=== PATIENT | female | born 1970 | race Caucasian/White ===

== ENCOUNTER 2024-08-06 08:03 | Outpatient (OUT) | payer BC, SELFPAY ==
--- NOTE | 2024-08-06 08:12 | ECG_ITS ---
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
--- NOTE | 2024-08-06 08:12 | XR_ITS ---
The [address] [address] Patient Name: JESSICA JENKINS MRN: [id number] date: 1970 Sex: F [facility]: [facility] Accession/Order Number: [id number] Exam Date: 08/06/2024 08:55 Report Date: 08/06/2024 10:13 At the request of: GURINDER MILLER Procedure: XR chest 2V PROCEDURE: XR chest 2V DATE: 08/06/2024 8:55 AM EST COMPARISONS: None. CLINICAL INDICATION: 54 years Female Preop exam FINDINGS: The cardiomediastinal silhouette and pulmonary vasculature are within normal limits. The lungs are clear. There is no evidence of pleural effusion or pneumothorax. XR/XR chest 2V IMPRESSION: Chest radiograph is within normal limits. Electronically authenticated by: MAYELIN SALDANA Date: 08/06/2024 10:13
== END 2024-08-06 08:04 | disposition home or self-care (01) ==
PROVIDERS: PCP Internal Medicine; Visit Provider Obstetrics & Gynecology
DX: Z01.810 Encounter for preprocedural cardiovascular examination (principal); N95.0 Postmenopausal bleeding
CPT/HCPCS: 71046; 93005

== ENCOUNTER 2024-08-13 06:11 | Day surgery (SDC) | payer BC, SELFPAY ==
[2024-08-06 08:46] VITALS: BP 139/90; PULSE 69; TEMP 36.3; O2SAT 99; BMI 21.9
[2024-08-13] VITALS (8 sets, daily range): BP systolic 111–140; BP diastolic 76–95; PULSE 62–78; TEMP 36.3–36.4; O2SAT 95–99; BMI 21.7
--- OUTSIDE RECORDS SUMMARY | 2024-08-13 06:14 | XMS_ITS | CCD ---
Author Organization [facility] CliniSyut Care Team Providers Care Prior Authorization Nurse Name Role Phone Schroeder, Yanira R Unavailable Unavailable Schroeder, Yanira R Unavailable Unavailable Schroeder, Yanira R Unavailable Unavailable Yuhas Timo ZAVALETA Primary Care Provider [phone] EVANGELINA ESTRADA Referring Unavailable YUHAS, TIMO Duong Primary Care Unavailable YUTIMO TINOCO Referring Unavailable YUHAPaco, TIMO Duong Primary Care Unavailable EVANGELINA ESTRADA Attending Unavailable TIMO FLORES Referring Unavailable YUHASTIMO Primary Care Unavailable YUTIMO TINOCO Attending Unavailable YUHATIMO Antonio Referring Unavailable YUHAS, TIMO Duong Primary Care Unavailable YUHASTIMO Attending Unavailable YUHATIMO Antonio Referring Unavailable YUHASTIMO Primary Care Unavailable EVANGELINA ESTRADA Referring Unavailable YUHASTIMO Primary Care Unavailable YUHASTIMO Referring Unavailable YUHASTIMO Primary Care Unavailable YUHATIMO Antonio Referring Unavailable YUHASTIMO Primary Care Unavailable YUHATIMO Antonio Admitting Unavailable YUHATIMO Antonio Attending Unavailable YUHATIMO Antonio Referring Unavailable YUHASTIMO Primary Care Unavailable YUHATIMO Antonio Attending Unavailable YUHASTIMO Referring Unavailable YUHAS, TIMO Duong Primary Care Unavailable Yuhas Timo KAMARA Primary Care Provider TERRA HENSON Attending Unavailable TIMO FLORES Referring Unavailable SIXTO TERRA C Referring Unavailable WINDNAVIOLET, TERRA C Attending Unavailable BIN JUSTIN Attending Unavailable SIXTO, TERRA C Attending Unavailable LENNOX BRUNO Attending Unavailable LENNOX BRUNO Referring Unavailable BIN JUSTIN Attending Unavailable SVETLANANAVIOLET, TERRA C Referring Unavailable WINDNAVIOLET, TERRA C Attending Unavailable LENNOX BRUNO Referring Unavailable GURINDER HECK Attending Unavailable LENNOX BRUNO Referring Unavailable GURINDER HECK Attending Unavailable Medications Current Medications Medication Drug Class(es) Dates Sig (Normalized) Sig (Original) cloNIDine hydrochloride 0.1 mg oral tablet (5 sources) Central alpha-2 Adrenergic Agonist Start: 07-31-2023 take 1 tablet by mouth once daily cloNIDine (CATAPRES) 0.1 mg tablet Take 1 tablet (0.1 mg total) by mouth nightly. 90 tablet 1 07/31/2023 Active ethinyl estradiol 0.0025 mg / norethindrone acetate 0.5 mg oral tablet (7 sources) Estrogen Start: 04-29-2024 End: 04-29-2025 norethindrone-eth inyl estradiol (Femhrt) 0.5-2.5 MG-MCG tablet Indications: Hot flash, menopausal , Moodiness , Sleep disturbance Take 1 tablet by mouth Daily 30 tablet 2 04/29/2024 04/29/2025 Active FLUoxetine 40 mg oral capsule (13 sources) Serotonin Reuptake Inhibitor Start: 12-31-2023 End: 06-12-2024 take 1 capsule by mouth once daily in the morning FLUoxetine (PROzac) 40 mg capsule Indications: Anxiety take 1 capsule by mouth every morning 90 capsule 1 06/12/2024 Active Start: 07-11-2023 take 1 capsule by mo uth once daily FLUoxetine (PROzac) 20 mg capsule take 1 capsule by mouth once daily 90 capsule 1 07/11/2023 Active fluticasone propionate 0.05 mg/actuat metered dose nasal spray (2 sources) Corticosteroid Start: 11-07-2023 take 2 spray(s) nasal route in the morning fluticasone propionate (FLONASE) 50 mcg/actuation nasal spray Administer 2 sprays into each nostril in the morning. 16 mL 2 11/07/2023 Active fluticasone / salmeterol (5 sources) Corticosteroid, beta2-Adrenergic Agonist Start: 05-29-2024 take 1 puff(s) by inhalation in the morning fluticasone propion-salmeteroL (ADVAIR DISKUS) 250-50 mcg/dose DISKUS Indications: Mild intermittent asthma without complication Inhale 1 puff in the morning and 1 puff before bedtime. 180 each 1 05/29/2024 Active Start: 05-15-2023 take 1 puff(s) by in halation in the morning fluticasone propion-salmeteroL (ADVAIR) 250-50 mcg/dose DISKUS Indications: Mild persistent asthma without complication Inhale 1 puff in the morning and 1 puff before bedtime. 180 each 1 05/15/2023 Active HAIR, SKIN AND NAILS, BIOTIN , ORAL (5 sources) HAIR, SKIN AND N AILS, BIOTIN, ORAL Take by mouth. Active HAIR, SKIN AND N AILS, BIOTIN, ORAL Take by mouth. 0 Active levothyroxine sodium 0.075 mg oral tablet (14 sources) l-Thyroxine Start: 06-24-2024 take 1 tablet by mouth once daily in the morning levothyroxine (SYNTHROID, LEVOTHROID) 75 MCG tablet Indications: Acquired hypothyroidism take 1 tablet by mouth every morning 90 tablet 1 06/24/2024 Active Start: 12-31-2023 End: 06-24-2024 take 1 tablet by mouth in the morning levothyroxine (SYNTHROID, LEVOTHROID) 75 MCG tablet Indications: Acquired hypothyroidism Take 1 tablet (75 mcg total) by mouth in the morning. 90 tablet 1 12/31/2023 06/24/2024 Discontinued Start: 03-23-2023 End: 10-23-2023 take 1 tablet by mouth in the morning levothyroxine (SYNTHROID, LEVOTHROID) 75 MCG tablet Take 1 tablet (75 mcg total) by mouth in the morning. 90 tablet 0 10/24/2023 Active montelukast 10 mg oral tablet (2 sources) Leukotriene Receptor Antagonist Start: 11-07-2023 take 1 tablet by mouth in the morning montelukast (SINGULAIR) 10 mg tablet Take 1 tablet (10 mg total) by mouth in the morning. 30 tablet 5 11/07/2023 Active rosuvastatin calcium 10 mg oral tablet (10 sources) HMG-CoA Reductase Inhibitor Start: 11-11-2023 take 1 tablet by mouth at bedtime rosuvastatin (Crestor) 10 MG tablet Take 10 mg by mouth at bedtime 11/11/2023 Active Completed/Discontinued Medications Medication Drug Class(es) Dates Sig (Normalized) Sig (Original) tiZANidine 4 mg oral tablet (5 sources) Central alpha-2 Adrenergic Agonist Start: 04-27-2024 End: 07-13-2024 tiZANidine (Zanaflex) 4 MG tablet Indications: Cervicogenic headache 1/2-1 tablet at bed 30 tablet 2 04/27/2024 07/13/2024 Discontinued Problems Active Problems Problem Classification Problem Date Documented Da te Episodic/Chronic Acute cerebrovascular disease (7 sources) Cerebral embolism; Translations: [Occlusion and stenosis of unspecified cerebral artery] Onset: 02-01-2024 02-01-2024 Chronic Anxiety disorders (9 sources) Anxiety; Translations: [Anxiety disorder, unspecified] Onset: 07-20-2022 07-20-2022 Chronic Asthma (4 sources) Mild intermittent asthma; Translations: [Mild intermittent asthma, uncomplicated] Onset: 11-07-2023 11-07-2023 Chronic Disorders of lipid metabolism (3 sources) Mixed hyperlipidemia; Translations: [Mixed hyperlipidemia] Onset: 11-11-2023 11-11-2023 Chronic Diverticulosis and diverticulitis (2 sources) Diverticulosis of large intestine; Translations: [Diverticulosis of large intestine without perforation or abscess without bleeding] Onset: 01-31-2024 01-31-2024 Chronic Headache; including migraine (19 sources) Migraine with aura; Translations: [Migraine with aura, not intractable, without status migrainosus] Onset: 12-18-2017 07-20-2022 Chronic Headache; including migraine (5 sources) Cervicogenic headache; Translations: [Cervicogenic headache] Onset: 05-28-2024 05-28-2024 Episodic Menopausal disorders (6 sources) Postmenopausal bleeding; Translations: [Postmenopausal bleeding] Onset: 07-13-2024 06-09-2024 Chronic Nervous system congenital anomalies (7 sources) Spina bifida with hydrocephalus; Translations: [Unspecified spina bifida with hydrocephalus] Onset: 08-19-2012 02-01-2024 Chronic Nutritional deficiencies (1 source) Deficiency of other specified B group vitamins; Translations: [Deficiency of other specified B group vitamins] Onset: 12-24-2023 Episodic Other and unspecified benign neoplasm (5 sources) Leiomyoma; Translations: [Benign neoplasm of connective and other soft tissue, unspecified] Onset: 07-13-2024 06-09-2024 Episodic Other nervous system disorders (1 source) Polyneuropathy, unspecified; Translations: [Polyneuropathy, unspecified] Onset: 12-24-2023 Chronic Other nervous system disorders (2 sources) Paresthesia of skin; Translations: [Paresthesia of skin] Onset: 12-24-2023 Episodic Other nervous system disorders (5 sources) Sensory disorder; Translations: [Unspecified disturbances of skin sensation] Onset: 05-28-2024 05-28-2024 Episodic Other upper respiratory disease (1 source) Other seasonal allergic rhinitis; Translations: [Other seasonal allergic rhinitis] Onset: 12-24-2023 Chronic Other upper respiratory infections (3 sources) Chronic frontal sinusitis; Translations: [Chronic frontal sinusitis] Onset: 11-07-2023 11-07-2023 Chronic Spondylosis; intervertebral disc disorders; other back problems (10 sources) Disorder of joint of spine; Translations: [Other spondylosis with radiculopathy, lumbar region] Onset: 05-28-2024 05-28-2024 Chronic Spondylosis; intervertebral disc disorders; other back problems (1 source) Cervical radiculopathy; Translations: [Radiculopathy, cervical region] 05-20-2024 Episodic Thyroid disorders (14 sources) Hypothyroidism; Translations: [Hypothyroidism, unspecified] Onset: 11-03-2019 07-20-2022 Chronic Unclassified (1 source) numbness ,face,tongue, fingers and toes Onset: 12-24-2023 Unclassified (1 source) Annual Exam Onset: 11-07-2023 Unclassified (1 source) Screening Onset: 01-31-2024 Past or Other Problems Problem Classification Problem Date Documented Da te Episodic/Chronic Conditions associated with dizziness or vertigo (5 sources) Dizziness; Translations: [Dizziness and giddiness] Onset: 07-20-2022 07-20-2022 Episodic Malaise and fatigue (5 sources) Fatigue; Translations: [Other fatigue] Onset: 07-20-2022 07-20-2022 Episodic Mood disorders (5 sources) Mood disorders Onset: 03-07-2023 Resolved: 12-31-2023 03-07-2023 Other connective tissue disease (7 sources) Aura; Translations: [Other symptoms and signs involving the nervous system] Onset: 12-18-2017 02-01-2024 Episodic Other nervous system disorders (5 sources) Abnormal sensation; Translations: [Other disturbances of skin sensation] Onset: 07-20-2022 07-20-2022 Episodic Other screening for suspected conditions (not mental disorders or infectious disease) (5 sources) Patient encounter status; Translations: [Encounter for screening for malignant neoplasm of colon] Onset: 11-07-2023 11-07-2023 Episodic Screening and history of mental health and substance abuse codes (1 source) Personal history of nicotine dependence; Translations: [Personal history of nicotine dependence] Onset: 08-21-2023 Episodic Results Test Name Value Interpretation Reference Range Facility US PELVIS TRANSVAGINALon US PELVIS TRANSVAGINAL EXAM: Pelvic Ultrasound, Transvaginal. REASON FOR EXAM: Post menopausal bleeding. COMPARISON: None TECHNIQUE: Longitudinal and transverse grayscale, color Doppler, spectral wave analysis of the pelvis obtained endovaginally. FINDINGS: The uterus is of normal size and position. Isoechoic mass in the right side of the uterine body measuring 1.9 x 1.46 x 1.22 cm with slight posterior acoustic enhancement. Neither ovary is visualized sonographically. Bowel gas hinders evaluation. The endometrium measures less than 3 mm. Measurements: Uterus: 8.95 x 4.82 x 3.60 cm EM: 0.26 cm Right Ovary: Not visualized Left Ovary: Not visualized IMPRESSION: 1. Hypoechoic solid lesion in the right myometrium near the fundus consistent with an intrauterine fibroid. 2. Limited study due to bowel gas. 3. The endometrium is thin. Correlate for endometrial atrophy given postmenopausal status. *This report is generated using voice recognition reporting (Aerospike). On occasion [employer] erroneously drops words from the report or replaces the spoken word with similar sounding words. Please call with any questions/concerns regarding this report.* Dictated and transcribed 06/03/24/dploulou This report has been electronically signed and approved by the interpreting radiologist. Electronically Signed Yasmani Catalan II, M.D. 2024-06-03 17:22:29 Normal Not Available EMG 2 Extremitieson 05-20-20 24 [facility] NVC 11-12 Nerveson 4 [facility] MR CERVICAL SPINE WO CONTRAS Ton 05-19-2024 MR CERVICAL SPINE WO CONTRAST Exam: MR - MRI CERVICAL SPINE WO Clinical History: Left sided neck pain, numbness/tingling in fingers and toes for a few months, no injury Reference Exam: No comparison FINDINGS: Imaging technique: Multiplanar MRI evaluation of the cervical spine is submitted, having been acquired in the dedicated cervical spine coil, without IV contrast, performed on 1.5 Marifer MRI system. Imaging findings: Negative for cerebellar tonsillar ectopia. Fourth ventricular size, position, and configuration normal. The cerebellar folia are preserved. There is appropriate vascular flow void in the arteries at the base the brain. Cervical spinal cord signal intensity and morphology normal. Cervical vertebral elemental height, contour, and alignment is anatomic. The disc spaces are well-maintained. Disc space analysis: C2-C3: No disc pathology. The neuroforamina are patent. C3-C4: Minimal central bulge of disc material. The neuroforamina are patent. C4-C5: No disc pathology. The neuroforamina are patent. C5-C6: No disc pathology. The neuroforamina are patent. C6-C7: Mild central bulge of disc material slightly narrowing the ventral epidural space. Early bilateral lateral recess narrowing due to bulging of disc material and subtle uncovertebral joint hypertrophic arthropathic changes more on the right. C7-T1: No disc pathology. The neuroforamina are patent. Paraspinal soft tissues: Negative. Impression: 1. Minor multilevel bulging of disc material most pronounced at C6-C7, with minor associated lateral recess narrowing more on the right. 2. Negative for overt disc extrusion, compression or other fracture, or subluxation. Dictated on: 05/19/2024 3:48 PM This report has been electronically signed and approved by the interpreting Radiologist. Electronically Signed Vince Marion M.D. 2024-05-19 16:01:57 Normal Not Available MR LUMBAR SPINE WO CONTRASTo n 05-19-2024 MR LUMBAR SPINE WO CONTRAST Exam: MR - MRI LUMBAR SPINE WO CONTRAST Clinical History: Low back pain radiates down left leg, numbness/tingling in fingers and toes for a couple of months, no injury Reference Exam: No comparison Technique: Multiplanar MRI evaluation is provided, having been acquired without IV contrast, performed in the dedicated spine coil on 1.5 Marifer MRI system. Findings: Normal conus medullaris terminating at T12-L1. Sagittal STIR imaging: No abnormal STIR weighted signal is identified. Gentle levorotoscoliosis of the lumbar spine. L1-2: Normal hydration and morphology of the intervertebral disc with no endplate spondylosis or facet arthrosis. Normal central canal, lateral recesses and intervertebral neural foramina with no neurologic impingement. L2-3: Normal hydration and morphology of the intervertebral disc with no endplate spondylosis or facet arthrosis. Normal central canal, lateral recesses and intervertebral neural foramina with no neurologic impingement. L3-4: Normal hydration and morphology of the intervertebral disc with no endplate spondylosis or facet arthrosis. Normal central canal, lateral recesses and intervertebral neural foramina with no neurologic impingement. L4-5: Normal hydration and morphology of the intervertebral disc with no endplate spondylosis or facet arthrosis. Normal central canal, lateral recesses and intervertebral neural foramina with no neurologic impingement. L5-S1: Degenerative disc space height loss. Central/left paracentral disc extrusion engaging and displacing the intrathecal left S1 nerve root. The right S1 nerve root is unaffected. The L5 nerve roots course through patent neuroforamina. Minor-mild posterior elemental hypertrophic arthropathic/ligamentous changes. Anterior spondylosis. No significant canal diameter sequela. There is no spondylolisthesis or spondylolysis. There are no infiltrative or destructive processes. There are no paraspinous abnormalities. Impression: 1. Central/left paracentral disc extrusion L5-S1 engaging the intrathecal left S1 nerve root. 2. Degenerative disc base height loss L5-S1. 3. Negative for acute compression or other fracture. No subluxation. Dictated on: 05/19/2024 4:23 PM This report has been electronically signed and approved by the interpreting Radiologist. Electronically Signed Vince Marion M.D. 2024-05-19 16:25:26 Normal Not Available BI MAMMOGRAM DIAGNOSTIC TERRA SYNTHESIS BILATERALon 04-29-2024 BI MAMMOGRAM DIAGNOSTIC TOMOSYNTHESIS BILATERAL This is a summary report. The complete report is available in the patient's medical record. If you cannot access the medical record, please contact the sending organization for a detailed fax or copy. EXAMINATION: BI MAMMOGRAM DIAGNOSTIC TOMOSYNTHESIS BILATERAL CLINICAL HISTORY:left breast lump COMPARISON: March 01, 2023. RESULT: Density: There are scattered areas of fibroglandular density Overall appearance is stable. There is no suspicious mass, asymmetry, architectural distortion, or calcification IMPRESSION: BIRADS 3 - Probably Benign. Please see ultrasound report. Follow-up: Routine Screening Mamm, Short Interval Follow-up Recommend follow-up mammography and ultrasonography in 4 months Board Certified Radiologists. Accredited by the ACR and FDA. MAMMOGRAPHY IS VERY IMPORTANT TO YOUR HEALTH. THE [employer] GUIDELINES RECOMMEND THAT WOMEN 40 YEARS OF AGE AND OLDER SHOULD HAVE A MAMMOGRAM EVERY YEAR. A REMINDER LETTER WILL BE SENT AT THE APPROPRIATE TIME. THIS FACILITY UTILIZES A REMINDER SYSTEM TO ENSURE ALL PATIENTS RECEIVE REMINDER NOTIFICATIONS AT THE APPROPRIATE TIME BASED ON THE RECOMMENDATIONS OF THIS EXAM. THIS INCLUDES REMINDERS FOR ROUTINE SCREENING MAMMOGRAMS, DIAGNOSTIC MAMMOGRAMS IN WHICH THE PATIENT IS ASKED TO RETURN FOR ADDITIONAL VIEWS, OR OTHER BREAST IMAGING INTERVENTIONS WHEN APPROPRIATE. THE PATIENT WILL BE PLACED IN THE APPROPRIATE REMINDER SYSTEM INCLUDING A REMINDER AT THE APPROPRIATE TIME FOR ANY PENDING ADDITIONAL VIEWS. TRANSCRIBED BY: ELECTRONICALLY SIGNED BY: Abbe Elder MD Normal Not Available BI US BREAST LIMITED LEFTon 04-29-2024 BI US BREAST LIMITED LEFT This is a summary report. The complete report is available in the patient's medical record. If you cannot access the medical record, please contact the sending organization for a detailed fax or copy. FINDINGS: Sonographic evaluation of the left breast was performed, correlation made with the same day mammogram and prior mammogram March 01, 2023. Left axillary structure is measured, 4.4 cm maximum diameter, not classic for an aggressive or suspicious breast mass, possible fatty replaced lymph node. IMPRESSION: BIRADS 3 - Probably benign. Recommend follow-up mammography and ultrasonography in 4 months TRANSCRIBED BY: ELECTRONICALLY SIGNED BY: Abbe Elder MD Normal Not Available MR BRAIN W AND WO CONTRAST ( ROUTINE)on 02-13-2024 MR BRAIN W AND WO CONTRAST (ROUTINE) EXAMINATION: MR BRAIN W AND WO CONTRAST (ROUTINE) HISTORY: generalized paresthesias, demyelination TECHNIQUE: Routine brain MRI protocol without and with contrast including diffusion images. CONTRAST: 13 mL intravenous ProHance COMPARISON: None. RESULT: Acute Change: There is no evidence of restricted diffusion to suggest an acute infarct. Hemorrhage: No evidence of prior parenchymal hemorrhage. Mass Lesion/ Mass Effect: No evidence of an intracranial mass or extra-axial fluid collection. No abnormal parenchymal or leptomeningeal enhancement following contrast administration. No significant mass effect. Chronic Change: Few punctate foci of increased T2 and FLAIR signal are noted in the supratentorial white matter which is a nonspecific finding, but likely represents minimal chronic microvascular ischemia or may be within normal limits for age. Parenchyma: No significant volume loss for age. Ventricles: Normal caliber and morphology. Skull Base: Hypothalamic and pituitary region are grossly normal. Craniocervical junction is normal. No significant marrow replacement process. Vasculature: Major intracranial arterial structures, and dural venous sinuses show typical flow void, suggesting patency. Other: The visualized paranasal are clear. Mastoid air cells are clear. The orbits are unremarkable. The extracranial soft tissues are unremarkable. IMPRESSION: No acute intracranial process or suspicious enhancement. ELECTRONICALLY SIGNED BY: Harjeet Rubio MD Normal Not Available BASIC METABOLIC PANLon 12-23 Anion gap [Moles/Vol] 14 mmol/L Normal 5-15 [facility] Comment on above: Performed By: #### PRECIOUS BELTRAN #### [facility] ([id number]) [address], [address] [place] [address] Calcium [Mass/Vol] 10.1 mg/dL Normal 8.5-10.5 [facility] Comment on above: Performed By: #### North FISHER BMP #### [facility] ([id number]) [address], [address] [place] [address] Chloride [Moles/Vol] 101 mmol/L Normal 98-109 [facility] Comment on above: Performed By: #### North FISHER BMP #### [facility] ([id number]) [address], [address] [place] [address] CO2 [Moles/Vol] 25 mmol/L Normal 22-32 [facility] Comment on above: Performed By: #### North FISHER BMP #### [facility] ([id number]) [address], [address] [place] [address] Creatinine [Mass/Vol] 0.78 mg/dL Normal 0.40-1.00 [facility] Comment on above: Result Comment: METH OD TRACEABLE TO IDMS STANDARD Performed By: #### T NATALIA BMP #### [facility] ([id number]) [address], [address] [place] [address] eGFR (CKD-EPI) NON-RACE DEPENDENT >90 Normal >59 [facility] Comment on above: Result Comment: Reported eGFR is based on the CKD-EPI 2020 equation that does not use a race coefficient. Performed By: #### T NATALIA BMP #### [facility] ([id number]) [address], [address] [place] [address] Glucose [Mass/Vol] 94 mg/dL Normal 65-99 [facility] Comment on above: Performed By: #### T NATALIA BMP #### [facility] ([id number]) [address], [facility] [address] [place] [address] Potassium [Moles/Vol] 4.2 mmol/L Normal 3.5-5.0 [facility] Comment on above: Performed By: #### T NATALIA BMP #### [facility] ([id number]) [address], [address] [place] [address] Sodium [Moles/Vol] 140 mmol/L Normal 134-146 [facility] Comment on above: Performed By: #### T NATALIA BMP #### [facility] ([id number]) [address] [address] Urea nitrogen [Mass/Vol] 16 mg/dL Normal 5-23 [facility] Comment on above: Performed By: #### T HYChristi BMP #### [facility] ([id number]) [address] [address] CBC AND AUTO DIFFon 12-24-19 24 ABSOLUTE BASOPHIL 0.0 X10E9/L Normal 0.0-0.2 [facility] Comment on above: Performed By: #### C BCA, [id number] #### [facility] ([id number]) [address], [address] [place] [address] ABSOLUTE NEUTROPHIL 3.7 X10E9/L Normal 1.5-6.6 [facility] Comment on above: Performed By: #### Martine GAMEZ, [id number] #### [facility] ([id number]) [address], [address] [place] [address] Basophils/100 WBC (Bld) 0.7 % Normal [facility] Comment on above: Performed By: #### Martine GAMEZ, [id number] #### [facility] ([id number]) [address], [address] [place] [address] Eosinophils (Bld) [#/Vol] 0.1 10*3/uL Normal 0.0-0.4 [facility] Comment on above: Performed By: #### Martine GAMEZ, [id number] #### [facility] ([id number]) [address], [address] [place] [address] Eosinophils/100 WBC (Bld) 0.9 % Normal [facility] Comment on above: Performed By: #### Martine GAMEZ, [id number] #### [facility] ([id number]) [address], [address] [place] [address] Erythrocyte distribution width (RBC) [Ratio] 12.8 % Normal 11.5-15.0 [facility] Comment on above: Performed By: #### Martine GAMEZ, 18843-4 #### [facility] ([id number]) [address], [address] [place] [address] Hematocrit (Bld) [Volume fraction] 43.9 % Normal 35-47 [facility] Comment on above: Performed By: #### Martine GAMEZ, 91182-5 #### [facility] ([id number]) [address], [address] [place] [address] Hemoglobin (Bld) [Mass/Vol] 14.6 g/dL Normal 11.7-15.5 [facility] Comment on above: Performed By: #### Martine GAMEZ, 32621-2 #### [facility] ([id number]) [address], [address] [place] [address] Lymphocytes (Bld) [#/Vol] 1.2 10*3/uL Normal 1.0-3.5 [facility] Comment on above: Performed By: #### Martine GAMEZ, 77163-4 #### [facility] ([id number]) [address], [facility] [address] [place] [address] Lymphocytes/100 WBC (Bld) 21.6 % Normal [facility] Comment on above: Performed By: #### Martine GAMEZ, 95692-8 #### [facility] ([id number]) [address], [address] [place] [address] MCH (RBC) [Entitic mass] 31.9 pg Normal 27-34 [facility] Comment on above: Performed By: #### Martine GAMEZ, 66529-0 #### [facility] ([id number]) [address], [address] [place] [address] MCHC (RBC) [Mass/Vol] 33.2 g/dL Normal 32-36 [facility] Comment on above: Performed By: #### Martine GAMEZ, 12895-7 #### [facility] ([id number]) [address], [address] [place] [address] MCV (RBC) [Entitic vol] 96 fL Normal 80-100 [facility] Comment on above: Performed By: #### Martine GAMEZ, 12160-7 #### [facility] ([id number]) [address], [address] [place] [address] Monocytes (Bld) [#/Vol] 0.4 10*3/uL Normal 0-0.9 [facility] Comment on above: Performed By: #### Martine GAMEZ, 54477-4 #### [facility] ([id number]) [address], [address] [place] [address] Monocytes/100 WBC (Bld) 8.4 % Normal [facility] Comment on above: Performed By: #### Martine GAMEZ, 93248-2 #### [facility] ([id number]) [address], [address] [place] [address] Neutrophils/100 WBC (Bld) 68.4 % Normal [facility] Comment on above: Performed By: #### Martine GAMEZ, 95680-0 #### [facility] ([id number]) [address], [address] [place] [address] Platelet mean volume (Bld) [Entitic vol] 8.1 fL Normal 7-12 [facility] Comment on above: Performed By: #### Martine GAMEZ, 97431-6 #### [facility] ([id number]) [address], [address] [place] [address] Platelets (Bld) [#/Vol] 203 10*3/uL Normal 150-450 [facility] Comment on above: Performed By: #### Martine GAMEZ, 97791-7 #### [facility] ([id number]) [address], [address] [place] [address] RBC COUNT 4.57 X10E12/L Normal 3.80-5.20 [facility] Comment on above: Performed By: #### Martine GAMEZ, 72453-1 #### [facility] ([id number]) [address], [address] [place] [address] WBC (Bld) [#/Vol] 5.4 10*3/uL Normal 4.0-11.0 [facility] Comment on above: Performed By: #### Martine GAMEZ, 07536-2 #### [facility] ([id number]) [address], [address] [place] [address] ESR Photometric method (Bld) [Velocity]on 12-24-2023 ESR, ERYTHROCYTE SEDIMENTATION RATE 26 mm/h Normal 0-30 [facility] Comment on above: Performed By: #### C FRANCO, 36271-6 #### [facility] ([id number]) [address], [address] [place] [address] THYROID PROFILEon 12-24-2023 Free T4 [Mass/Vol] 0.87 ng/dL Normal 0.61-1.60 [facility] Comment on above: Performed By: #### North FISHER BMP #### [facility] ([id number]) [address], [address] [place] [address] TSH 0.54 uIU/mL Normal 0.49-4.67 [facility] Comment on above: Performed By: #### [place] FISH[place], BMP #### [facility] ([id number]) [address], [address] [place] [address] XR SINUSES MIN 3 VWSon 11-08 XR SINUSES MIN 3 VWS XR SINUSES MIN 3 VWS Clinical: Sinus pressure and congestion EXAM: SINUS RADIOGRAPHS Views: 3 Comparison: None The frontal, ethmoid, maxillary, and sphenoid sinuses are normally aerated. No air-fluid level seen. Impression: * Normally aerated paranasal sinuses. Finalized by Andrea Bailey MD on 11/09/2023 1:21 PM Normal [facility] COMPREHENSIVE METABOLIC PANE [place] 11-07-2023 Albumin [Mass/Vol] 4.2 g/dL Normal 3.2-5.3 [facility] Comment on above: Performed By: #### [place], 50[address]-6, THYR #### [facility] ([id number]) [address], [address] [place] [address] ALP [Catalytic activity/Vol] 75 U/L Normal 39-130 [facility] Comment on above: Performed By: #### C NATHANAEL, 21833-0, THYR #### [facility] ([id number]) [address], [address] [place] [address] ALT [Catalytic activity/Vol] 24 U/L Normal 0-31 [facility] Comment on above: Performed By: #### C NATHANAEL, 79258-3, THYR #### [facility] ([id number]) [address], [address] [place] [address] Anion gap [Moles/Vol] 8 mmol/L Normal 5-15 [facility] Comment on above: Performed By: #### Martine HUFFMAN, 72461-4, THYR #### [facility] ([id number]) [address], [address] [place] [address] AST [Catalytic activity/Vol] 22 U/L Normal 0-41 [facility] Comment on above: Performed By: #### Martine HUFFMAN, 79065-0, THYR #### [facility] ([id number]) [address], [address] [place] [address] Bilirubin [Mass/Vol] 0.4 mg/dL Normal 0.3-1.2 [facility] Comment on above: Performed By: #### Martine HUFFMAN, 10344-8, THYR #### [facility] ([id number]) [address], [address] [place] [address] Calcium [Mass/Vol] 9.1 mg/dL Normal 8.5-10.5 [facility] Comment on above: Performed By: #### Martine HUFFMAN, 85299-4, THYR #### [facility] ([id number]) [address], [address] [place] [address] Chloride [Moles/Vol] 103 mmol/L Normal 98-109 [facility] Comment on above: Performed By: #### Martine HUFFMAN, 17175-1, THYR #### [facility] ([id number]) [address] [address] [place] [address] CO2 [Moles/Vol] 30 mmol/L Normal 22-32 [facility] Comment on above: Performed By: #### Martine HUFFMAN, 82264-2, THYR #### [facility] ([id number]) [address] [address] [place] [address] Creatinine [Mass/Vol] 0.69 mg/dL Normal 0.40-1.00 [facility] Comment on above: Result Comment: METH OD TRACEABLE TO IDMS STANDARD Performed By: #### Martine HUFFMAN 80430-1, THYR #### [facility] ([id number]) [address], [address] [place] [address] eGFR (CKD-EPI) NON-RACE DEPENDENT >90 Normal >59 [facility] Comment on above: Result Comment: Reported eGFR is based on the CKD-EPI 2020 equation that does not use a race coefficient. Performed By: #### Martine HUFFMAN, 25768-5, THYR #### [facility] ([id number]) [address] [address] [place] [address] Glucose [Mass/Vol] 86 mg/dL Normal 65-99 [facility] Comment on above: Performed By: #### Martine HUFFMAN 37869-0, THYR #### [facility] ([id number]) [address] [address] [place] [address] Potassium [Moles/Vol] 4.3 mmol/L Normal 3.5-5.0 [facility] Comment on above: Performed By: #### Martine HUFFMAN 83128-2, THYR #### [facility] ([id number]) [address] [address] [place] [address] Protein [Mass/Vol] 6.7 g/dL Normal 6.0-8.0 [facility] Comment on above: Performed By: #### Martine HUFFMAN 78615-1, THYR #### [facility] ([id number]) [address], [address] [place] [address] Sodium [Moles/Vol] 141 mmol/L Normal 134-146 [facility] Comment on above: Performed By: #### C NATHANAEL, 81112-5, THYR #### [facility] ([id number]) [address], [address] [place] [address] Urea nitrogen [Mass/Vol] 14 mg/dL Normal 5-23 [facility] Comment on above: Performed By: #### C NATHANAEL, 91275-1, THYR #### [facility] ([id number]) [address], [address] [place] [address] Comprehensive metabolic pane [place] 11-07-2023 Albumin [Mass/Vol] 4.2 g/dL 3.2 - 5.3 g/dL [facility] ALP [Catalytic activity/Vol] 75 U/L 39 - 130 U/L [facility] ALT No additional P-5'-P [Catalytic activity/Vol] 24 U/L 0 - 31 U/L [facility] Anion gap [Moles/Vol] 8 mmol/L 5 - 15 mmol/L [facility] AST [Catalytic activity/Vol] 22 U/L 0 - 41 U/L [facility] Bilirubin [Mass/Vol] 0.4 mg/dL 0.3 - 1.2 mg/dL [facility] Calcium [Mass/Vol] 9.1 mg/dL 8.5 - 10. 5 mg/dL [facility] Chloride [Moles/Vol] 103 mmol/L 98 - 109 mmol/L [facility] CO2 [Moles/Vol] 30 mmol/L 22 - 32 mmol/L [facility] Creatinine [Mass/Vol] 0.69 mg/dL 0.40 - 1.00 mg/dL [facility] Comment on above: METHOD TRACEABLE TO IDNY STANDARD eGFR (CKD-EPI)non-race dependent - PINF [facility] Comment on above: Reported eGFR is based on the CKD-EPI 2020 equation that does not use a race coefficient. Glucose [Mass/Vol] 86 mg/dL 65 - 99 mg/dL [facility] Potassium [Moles/Vol] 4.3 mmol/L 3.5 - 5.0 mmol/L [facility] Protein [Mass/Vol] 6.7 g/dL 6.0 - 8.0 g/dL [facility] Sodium [Moles/Vol] 141 mmol/L 134 - 146 mmol/L [facility] Urea nitrogen [Mass/Vol] 14 mg/dL 5 - 23 mg/dL [facility] Lipid 1996 panelon 4 Cholesterol [Mass/Vol] 312 mg/dL High 150 - 200 mg/dL [facility] Cholesterol in HDL [Mass/Vol] 60 mg/dL 39 - PINF mg/dL [facility] Comment on above: HDL <40 mg/dL - High Risk HDL > or = 40mg/dL- Desirable HDL >60 mg/dL - Negative Risk Cholesterol in LDL [Mass/Vol] 192 mg/dL High NINF - 130 mg/dL [facility] Comment on above: LDL <100 mg/dL - Desirable LDL >160 mg/dL - High Risk Cholesterol in VLDL [Mass/Vol] 60 mg/dL High 0 - 30 mg/dL [facility] Cholesterol.total/ Cholesterol in HDL [Mass ratio] 5.2 {ratio} High 1.0 - 5.0 [facility] Interpretation and review of laboratory results Abnormal [facility] Triglyceride [Mass/Vol] 299 mg/dL High 27 - 150 mg/dL [facility] Cholesterol [Mass/Vol] 312 mg/dL High 150-200 [facility] Comment on above: Performed By: #### C , 14833-5, THYR #### [facility] ([id number]) [address] [place] [address], [address] [place] [address] Cholesterol in HDL [Mass/Vol] 60 mg/dL Normal >39 [facility] Comment on above: Result Comment: HDL <40 mg/dL - High Risk HDL > or = 40mg/dL- Desirable HDL >60 mg/dL - Negative Risk Performed By: #### Martine HUFFMAN, 71140-2, THYR #### [facility] ([id number]) [address], [address] [place] [address] Cholesterol in LDL [Mass/Vol] 192 mg/dL High <130 [facility] Comment on above: Result Comment: LDL <100 mg/dL - Desirable LDL >160 mg/dL - High Risk Performed By: #### Martine HUFFMAN, 62771-2, THYR #### [facility] ([id number]) [address], [address] [place] [address] Cholesterol in VLDL [Mass/Vol] 60 mg/dL High 0-30 [facility] Comment on above: Performed By: #### Martine HUFFMAN, 09683-6, THYR #### [facility] ([id number]) [address], [address] [place] [address] CHOLESTEROL:HDL 5.2 High 1.0-5.0 [facility] Comment on above: Performed By: #### Martine HUFFMAN, 17317-7, THYR #### [facility] ([id number]) [address], [address] [place] [address] Triglyceride [Mass/Vol] 299 mg/dL High 27-150 [facility] Comment on above: Performed By: #### Martine HUFFMAN, 06681-7, THYR #### [facility] ([id number]) [address], [address] [place] [address] No Panel Informationon 11-06 [facility] THYROID PROFILEon 11-07-2023 Free T4 [Mass/Vol] 0.82 ng/dL Normal 0.61-1.60 [facility] Comment on above: Performed By: #### Martine HUFFMAN, 74898-8, THYR #### [facility] ([id number]) [address] [place] [address] TSH 0.96 uIU/mL Normal 0.49-4.67 [facility] Comment on above: Performed By: #### Martine HUFFMAN, 72395-4, THYR #### [facility] ([id number]) [address] [place] [address] Thyroid profile includes TSH FT4on 11-07-2023 Free T4 [Mass/Vol] 0.82 ng/dL 0.61 - 1. 60 ng/dL [facility] TSH Qn 0.96 m[IU]/L [facility] COMPREHENSIVE METABOLIC PANE [place] 11-04-2021 Albumin [Mass/Vol] 4.1 g/dL Normal 3.6-5.1 [facility] Comment on above: Performed By: #### 7 600, 31932, 79901 #### [facility] [place] [address] Overlock Operator: Neno Curry MD Albumin/Globulin [Mass ratio] 1.7 {ratio} Normal 1.0-2.5 [facility] Comment on above: Performed By: #### 7 600, 16754, 65558 #### [facility] [address] Overlock Operator: Neno Curry MD ALP [Catalytic activity/Vol] 66 U/L Normal 37-153 [facility] Comment on above: Performed By: #### 7 600, 68737, 60518 #### [facility] [place] [address] [place] [address] Overlock Operator: Neno Curry MD ALT [Catalytic activity/Vol] 29 U/L Normal 6-29 [facility] Comment on above: Performed By: #### 7 600, 86633, 26338 #### [facility] of [place] [address] Overlock Operator: Neno Curry MD AST [Catalytic activity/Vol] 24 U/L Normal 10-35 [facility] Comment on above: Performed By: #### 7 600, 04956, 14662 #### [facility] of [place] [address] Overlock Operator: Neno uCrry MD Bilirubin [Mass/Vol] 0.6 mg/dL Normal 0.2-1.2 [facility] Comment on above: Performed By: #### 7 600, 44550, 33770 #### [facility] of [place] [address] Overlock Operator: Neno Curry MD BUN/CREATININE RATIO NOT APPLICABLE Normal 6-22 [facility] Comment on above: Performed By: #### 7 600, 89253, 41033 #### [facility] of [place] [address] Overlock Operator: Neno Curry MD Calcium [Mass/Vol] 9.5 mg/dL Normal 8.6-10.4 [facility] Comment on above: Performed By: #### 7 600, 08988, 08126 #### [facility] of [place] [address] Overlock Operator: Neno Curry MD Chloride [Moles/Vol] 104 mmol/L Normal 98-110 [facility] Comment on above: Performed By: #### 7 600, 41221, 05276 #### [facility] of [place] [address] Overlock Operator: Neno Curry MD CO2 [Moles/Vol] 31 mmol/L Normal 20-32 [facility] Comment on above: Performed By: #### 7 600, 69910, 51073 #### [facility] [address], [address] [place] [address] Overlock Operator: Neno Curry MD Creatinine [Mass/Vol] 0.74 mg/dL Normal 0.50-1.05 [facility] Comment on above: Result Comment: For patients >49 years of age, the reference limit for Creatinine is approximately 13% higher for people identified as -Austrian. Performed By: #### 7 600, 33740, 55265 #### [facility] of [address], [address] [place] [address] Overlock Operator: Neno Curry MD eGFR NON-AFR. CUBAN 94 mL/min/1.73m2 Normal > OR = 60 [facility] Comment on above: Performed By: #### 7 600, 21260, 53808 #### [facility] [address], [address] [place] [address] Overlock Operator: Neno Curry MD GFR/1.73 sq M.predicted among blacks MDRD (S/P/Bld) [Vol rate/Area] 109 mL/min/{1.73_m2} Normal > OR = 60 [facility] Comment on above: Performed By: #### 7 600, 83716, 88157 #### [facility] [address], [address] [place] [address] Overlock Operator: Neno Curry MD Globulin (S) [Mass/Vol] 2.4 g/dL Normal 1.9-3.7 [facility] Comment on above: Performed By: #### 7 600, 85019, 36289 #### [facility] of [address], [address] [place] [address] Overlock Operator: Neno Curry MD Glucose [Mass/Vol] 90 mg/dL Normal 65-99 [facility] Comment on above: Result Comment: Fasting reference interval Performed By: #### 7 600, 29353, 40932 #### [facility] of [address], [address] [place] [address] Overlock Operator: Neno Curry MD Potassium [Moles/Vol] 4.2 mmol/L Normal 3.5-5.3 [facility] Comment on above: Performed By: #### 7 600, 27936, 45334 #### [facility] of [address], [address] [place] [address] Overlock Operator: Neno Curry MD Protein [Mass/Vol] 6.5 g/dL Normal 6.1-8.1 [facility] Comment on above: Performed By: #### 7 600, 08232, 97321 #### [facility] of [address], [address] [place] [address] Overlock Operator: Neno Curry MD Sodium [Moles/Vol] 141 mmol/L Normal 135-146 [facility] Comment on above: Performed By: #### 7 600, 17497, 10621 #### [facility] of [address], [address] [place] [address] Overlock Operator: Neno Curry MD Urea nitrogen [Mass/Vol] 15 mg/dL Normal 7-25 [facility] Comment on above: Performed By: #### 7 600, 33515, 41810 #### [facility] of [place] [address] Overlock Operator: Neno Curry MD LIPID PANEL, [facility] [place] 030 Cholesterol [Mass/Vol] 289 mg/dL High <200 [facility] Comment on above: Order Comment: FASTI NG:YES FASTING: YES Performed By: #### 7 600, 28392, 67182 #### [facility] of [place] [address] Overlock Operator: Neno Curry MD Cholesterol in HDL [Mass/Vol] 63 mg/dL Normal > OR = 50 [facility] Comment on above: Order Comment: FASTI NG:YES FASTING: YES Performed By: #### 7 600, 20254, 93670 #### [facility] of [place] [address] Overlock Operator: Neno Curry MD Cholesterol in LDL [Mass/Vol] 204 mg/dL High [facility] Comment on above: Order Comment: FASTI NG:YES FASTING: YES Result Comment: LDL- C levels > or = 190 mg/dL may indicate familial hypercholesterolemia (FH). Clinical assessment and measurement of blood lipid levels should be considered for all first degree relatives of patients with an FH diagnosis. For questions about testing for familial hypercholesterolemia, please call [employer] [facility] at [email or web address]. Ayleen Kat, et al. J National Lipid Association Recommendations for Patient-Centered Management of Dyslipidemia: Part 1 Journal of Clinical Lipidology 2015;9(2), 129-169. Reference range: <100 Desirable range <100 mg/dL for primary prevention; <70 mg/dL for patients with CHD or diabetic patients with > or = 2 CHD risk factors. LDL-C is now calculated using the Efraín-Ginger calculation, which is a validated novel method providing better accuracy than the Friedewald equation in the estimation of LDL-C. Efraín HOGUE et al. EMERSON. 2013;310(19): 2378-1971 (http://education.[employer]/faq/PNI297) Performed By: #### 7 600, 88128, 83224 #### [facility] [address], [address] [place], [place] [id number] Overlock Operator: Neno Curry MD Cholesterol.total/ Cholesterol in HDL [Mass ratio] 4.6 {ratio} Normal <5.0 [facility] Comment on above: Order Comment: FASTI NG:YES FASTING: YES Performed By: #### 7 600, 12535, 90022 #### [facility] [address], [address] [place] [address] Overlock Operator: Neno Curry MD NON HDL CHOLESTEROL 226 mg/dL (calc) High <130 [facility] Comment on above: Order Comment: FASTI NG:YES FASTING: YES Result Comment: Non- HDL level > or = 220 is very high and may indicate genetic familial hypercholesterolemia (FH). Clinical assessment and measurement of blood lipid levels should be considered for all first-degree relatives of patients with an FH diagnosis. For patients with diabetes plus 1 major ASCVD risk factor, treating to a non-HDL-C goal of <100 mg/dL (LDL-C of <70 mg/dL) is considered a therapeutic option. Performed By: #### 7 600, 90052, 17201 #### [facility] [address], [address] [place] [address] Overlock Operator: Neno Curry MD Triglyceride [Mass/Vol] 101 mg/dL Normal <150 [facility] Comment on above: Order Comment: FASTI NG:YES FASTING: YES Performed By: #### 7 600, 42467, 25172 #### [facility] [address], [address] [place] [address] Overlock Operator: Neno Curry MD VITAMIN D,25-OH,TOTAL,IAon 0 11-04-2021 VITAMIN D,25-OH,TOTAL,IA 51 ng/mL Normal 30-100 [facility] Comment on above: Result Comment: [place] min D Status 25-OH Vitamin D: Deficiency: <20 ng/mL Insufficiency: 20 - 29 ng/mL Optimal: > or = 30 ng/mL For 25-OH Vitamin D testing on patients on D2-supplementation and patients for whom quantitation of D2 and D3 fractions is required, the QuestAssureD(TM) 25-OH VIT D, (D2,D3), LC/MS/MS is recommended: order code [id number] (patients >2yrs). See Note 1 Note 1 For additional information, please refer to http://education.[employer]/faq/GMZ423 (This link is being provided for informational/ educational purposes only.) Performed By: #### 7 600, 62470, 82944 #### [facility] [address], [address] [place] [address] Overlock Operator: Neno Curry MD ESTRADIOL AND ESTRONEon 07-03 ESTRADIOL,ULTRASEN SITIVE, LC/MS 7 pg/mL Normal [facility] Comment on above: Order Comment: FASTI NG:UNKNOWN FASTING: UNKNOWN Result Comment: Adult Female Reference Ranges for Estradiol, Ultrasensitive: Follicular Phase: 39-375 pg/mL Luteal Phase: 48-440 pg/mL Postmenopausal Phase: < or = 10 pg/mL Pediatric Female Reference Ranges for Estradiol, Ultrasensitive: Pre-pubertal (1-9 years): < or = 16 pg/mL 10-11 years: < or = 65 pg/mL 12-14 years: < or = 142 pg/mL 15-17 years: < or = 283 pg/mL This test was developed and its analytical performance characteristics have been determined by [facility]. It has not been cleared or approved by FDA. This assay has been validated pursuant to the CLIA regulations and is used for clinical purposes. Performed By: #### 5 8984, 615, 470 #### [facility] [place] [address], [address] [place] [address] Overlock Operator: Neno Curry MD #### 7437 #### [facility], [address] [place] [address] Overlock Operator: Liana Brian MD,PhD,SUKUMAR ESTRONE 15 pg/mL Normal [facility] Comment on above: Order Comment: FASTI NG:UNKNOWN FASTING: UNKNOWN Result Comment: Adult Female Reference Ranges for Estrone: Follicular Phase: 10-138 pg/mL Luteal Phase: 16-173 pg/mL Postmenopausal Phase: < or = 65 pg/mL Pediatric Female Reference Ranges for Estrone: Pre-pubertal (1-9 years): < or = 34 pg/mL 10-11 years: < or = 72 pg/mL 12-14 years: < or = 75 pg/mL 15-17 years: < or = 188 pg/mL This test was developed and its analytical performance characteristics have been determined by [facility]. It has not been cleared or approved by FDA. This assay has been validated pursuant to the CLIA regulations and is used for clinical purposes. Performed By: #### 5 [id number], 615, 470 #### [facility] [address], [address] [place], [place] [id number] Overlock Operator: Neno Curry MD #### [id number] #### [facility], [address] [place] [address] Overlock Operator: Liana Brian MD,PhD,SUKUMAR FSHon 07-16-2021 FSH 105.9 mIU/mL Normal [facility] Comment on above: Result Comment: Refe rence Range Follicular Phase 2.5-10.2 Mid-cycle Peak 3.1-17.7 Luteal Phase 1.5- 9.1 Postmenopausal 23.0-116.3 Performed By: #### 5 [id number], 615, 470 #### [facility] [address], [address] [place] [address] Overlock Operator: Neno Curry MD #### [id number] #### [facility], [address] [place] [address] Overlock Operator: Liana Brian MD,PhD,SUKUMAR LHon 07-16-2021 LH 90.3 mIU/mL High [facility] Comment on above: Result Comment: Refe rence Range Follicular Phase 1.9-12.5 Mid-Cycle Peak 8.7-76.3 Luteal Phase 0.5-16.9 Postmenopausal 10.0-54.7 Performed By: #### 5 [id number], 615, 470 #### [facility] [address], [address] [place] [address] Overlock Operator: Neno Curry MD #### [id number] #### [facility], [address] [place] [phone] Overlock Operator: Liana Brian MD,PhD,SUKUMAR TSH+FREE T4on 07-16-2021 Free T4 [Mass/Vol] 1.2 ng/dL Normal 0.8-1.8 [facility] Comment on above: Performed By: #### 5 [id number], 615, 470 #### [facility] [address], [address] [place], [place] [id number] Overlock Operator: Neno Curry MD #### [id number] #### [facility], [address] [place] [address] Overlock Operator: Liana Brian MD,PhD,SUKUMAR TSH Qn 0.89 m[IU]/L Normal [facility] Comment on above: Result Comment: Refe rence Range > or = 20 Years 0.40-4.50 Ranges First trimester 0.26-2.66 Second trimester 0.55-2.73 Third trimester 0.43-2.91 Performed By: #### 5 [id number], 615, 470 #### [facility] [address] [facility], [address] [place] [address] Overlock Operator: Neno Curry MD #### [id number] #### [facility], [address] [place] [address] Overlock Operator: Liana Brian MD,PhD,SUKUMAR SARS CoV 2 SEROLOGY (COVID19 ) AB (IgG,IgM), IAon 03-21-2021 SARS-CoV-2 (COVID-19) Ab IA Ql Negative Normal NEGATIVE [facility] Comment on above: Result Comment: Reference range: Negative These tests are intended for use as an aid in identifying individuals with an adaptive immune response to SARS-CoV-2, indicating recent or prior infection. Results are for the detection of SARS-CoV-2 IgG and IgM antibodies. IgM antibodies to SARS-CoV-2 are generally detectable in blood several days after initial infection, with IgG antibodies typically reaching detectable levels a few days later. The duration of time antibodies are present post-infection is not well characterized. At this time, it is unknown how long IgG and IgM antibodies persist following infection, or if the presence of antibodies confers protective immunity. Individuals may have detectable virus present for several weeks following seroconversion. Negative results for antibodies do not preclude acute SARS-CoV-2 infection. These tests should not be used to diagnose acute SARS-CoV-2 infection. If acute infection is suspected, direct testing for SARS-CoV-2 is necessary. False positive results for the tests may occur due to cross-reactivity from pre-existing antibodies or other possible causes. The sensitivity of the tests early after infection is unknown. IgM Result IgG Result Interpretation Negative Negative Antibodies not detected. Does not preclude acute SARS-CoV-2 infection. Negative Positive Suggests past exposure to SARS-CoV-2. Positive Negative Suggests recent exposure to SARS-CoV-2. Positive Positive Suggests recent exposure to SARS-CoV-2. Please review the Fact Sheets available for health care providers and patients using the following websites: [facility]/home/Covid-19/HCP/antibody/fact-sheet2 [facility]/home/Covid-19/Patients/antibody/fact-sheet2 [facility]/home/Covid-19/HCP/antibody/fact-sheet6 [facility]/home/Covid-19/Patients/antibody/fact-sheet6 These tests have been authorized by the FDA under an Emergency Use Authorization (EUA) for use by authorized laboratories. The FDA authorized fact sheets are available on the [employer] website: www.[email or web address]. For additional information please refer to http://education.[employer]/faq/POV979 (This link is being provided for informational/ educational purposes only.) Performed By: #### 3 [id number] #### [facility] [address], [address] [place] [phone] Overlock Operator: Neno Curry MD SARS-CoV-2 (COVID-19) IgM Ab [Presence] in Serum, Plasma or Blood by Rapid immunoassay Negative Normal NEGATIVE [facility] Comment on above: Result Comment: Reference range: Negative These tests are intended for use as an aid in identifying individuals with an adaptive immune response to SARS-CoV-2, indicating recent or prior infection. Results are for the detection of SARS-CoV-2 IgG and IgM antibodies. IgM antibodies to SARS-CoV-2 are generally detectable in blood several days after initial infection, with IgG antibodies typically reaching detectable levels a few days later. The duration of time antibodies are present post-infection is not well characterized. At this time, it is unknown how long IgG and IgM antibodies persist following infection, or if the presence of antibodies confers protective immunity. Individuals may have detectable virus present for several weeks following seroconversion. Negative results for antibodies do not preclude acute SARS-CoV-2 infection. These tests should not be used to diagnose acute SARS-CoV-2 infection. If acute infection is suspected, direct testing for SARS-CoV-2 is necessary. False positive results for the tests may occur due to cross-reactivity from pre-existing antibodies or other possible causes. The sensitivity of the tests early after infection is unknown. IgM Result IgG Result Interpretation Negative Negative Antibodies not detected. Does not preclude acute SARS-CoV-2 infection. Negative Positive Suggests past exposure to SARS-CoV-2. Positive Negative Suggests recent exposure to SARS-CoV-2. Positive Positive Suggests recent exposure to SARS-CoV-2. Please review the Fact Sheets available for health care providers and patients using the following websites: [facility]/[employer]/Covid-19/HCP/antibody/fact-sheet2 [facility]/home/Covid-19/Patients/antibody/fact-sheet2 [facility]/home/Covid-19/HCP/antibody/fact-sheet6 [facility]/[employer]/Covid-[employer]/Patients/antibody/fact-sheet6 These tests have been authorized by the FDA under an Emergency Use Authorization (EUA) for use by authorized laboratories. The FDA authorized fact sheets are available on the [employer] website: www.[facility]/Covid19. For additional information please refer to http://education.[employer]/faq/JCF829 (This link is being provided for informational/ educational purposes only.) Performed By: #### 3 [id number] #### [facility] [address], [address] [place] [phone] Overlock Operator: Neno Curry MD Vital Signs Date Time Vital Sign Value Performing Clinician Facility 07-28-2024 14:02-0500 Body mass index (BMI) [Ratio] 22.05 kg/m2 [employer] Work Phone: [facility] 07-28-2024 14:02-0500 Body weight 63.87 kg [employer] Work Phone: [facility] 07-28-2024 14:02-0500 Diastolic blood pressure 82 mm[Hg] [employer] Work Phone: [facility] 07-28-2024 14:02-0500 Systolic blood pressure 120 mm[Hg] [employer] Work Phone: [facility] 07-13-2024 09:27-0500 Body mass index (BMI) [Ratio] 22.42 kg/m2 Gurinder Umang DO Work Phone: [facility] 07-13-2024 09:27-0500 Body weight 64.92 kg Gurinder Umang DO Work Phone: [facility] 07-13-2024 09:27-0500 Diastolic blood pressure 78 mm[Hg] Gurinder Umang DO Work Phone: [facility] 07-13-2024 09:27-0500 Systolic blood pressure 130 mm[Hg] Gurinder Umang DO Work Phone: [facility] 11-07-2023 09:17-0500 Body height 172.7 cm Evangelina Estrada CLINICAL SERVICES MANAGER[employer] Work Phone: [facility] 11-07-2023 09:17-0500 Body mass index (BMI) [Ratio] 21.96 kg/m2 Evangelina Estrada CLINICAL SERVICES MANAGER-[employer] Work Phone: [facility] 11-07-2023 09:17-0500 Body temperature 98.6 [degF] Evangelina Estrada CLINICAL SERVICES MANAGER-[employer] Work Phone: [facility] 11-07-2023 09:17-0500 Body weight 65.5 kg Evangelina Estrada CLINICAL SERVICES MANAGER-[employer] Work Phone: [facility] 11-07-2023 09:17-0500 Diastolic blood pressure 70 mm[Hg] Evangelina Estrada CLINICAL SERVICES MANAGER-[employer] Work Phone: [facility] 11-07-2023 09:17-0500 Heart rate 88 /min Evangelina Estrada CLINICAL SERVICES MANAGER-[employer] Work Phone: [facility] 11-07-2023 09:17-0500 SaO2% (BldA) [Mass fraction] 98 % Evangelina Estrada CLINICAL SERVICES MANAGER-[employer] Work Phone: [facility] 11-07-2023 09:17-0500 Systolic blood pressure 110 mm[Hg] Evangelina Kuns CLINICAL SERVICES MANAGER-[employer] Work Phone: [facility] Encounters Encounter Date Encounter Type Care Provider Facility Start: 07-28-2024 End: 07-28-2024 Bamboo flowsheet Gurinder Umang DO Work Phone: [facility] Start: 07-28-2024 End: 07-28-2024 Bamboo flowsheet Gurinder Umang DO Work Phone: [facility] Start: 07-28-2024 End: 07-28-2024 Office outpatient visit 15 minutes Gurinder Umang DO Work Phone: [facility] Comment on above: Pre-operative exam; Post-menopausal bleeding Start: 07-28-2024 End: 07-28-2024 Preprocedural examination done Gurinder Umang DO Work Phone: [facility] Work Phone: Start: 07-28-2024 End: 07-28-2024 ambulatory GURINDER UMANG Not Available Start: 07-13-2024 End: 07-13-2024 Bamboo flowsheet Gurinder Umang DO Work Phone: [facility] Start: 07-13-2024 End: 07-13-2024 Bamboo flowsheet Gurinder Umang DO Work Phone: [facility] Start: 07-13-2024 End: 07-13-2024 Office outpatient visit 15 minutes Gurinder Umang DO Work Phone: [facility] Comment on above: Fibroid; Post-menopausal bleeding Start: 07-13-2024 End: 07-13-2024 ambulatory GURINDER UMANG Not Available Start: 06-24-2024 End: 06-24-2024 Refill Timo Flores DO Work Phone: [facility] Comment on above: Acquired hypothyroid ism Start: 06-12-2024 End: 06-12-2024 Refill Timo Flores DO Work Phone: [facility] Comment on above: Anxiety Start: 06-09-2024 End: 06-09-2024 Orders Only Lennox Bruno CNM Work Phone: [facility] Comment on above: Fibroid (Primary Dx) ; Post-menopausal bleeding Start: 06-03-2024 End: 06-03-2024 ambulatory LENNOX MEZAO Not Available Start: 05-28-2024 End: 05-28-2024 ambulatory TERRA C WINDNAGEL Not Available Start: 05-19-2024 End: 05-19-2024 ambulatory TERRA C WINDNAGEL Not Available Start: 05-19-2024 End: 05-19-2024 Bamboo flowsheet Bin Justin MD Work Phone: [facility] Start: 05-19-2024 End: 05-19-2024 Bamboo flowsheet Bin Justin MD Work Phone: [facility] Start: 05-19-2024 End: 05-19-2024 Patient encounter procedure Bin Justin MD Work Phone: [facility] Comment on above: Cervical radiculopat hy (Primary Dx) Start: 05-19-2024 End: 05-19-2024 ambulatory BIN JUSTIN Not Available Start: 04-29-2024 End: 04-29-2024 ambulatory LENNOX MEZAO Not Available Start: 04-27-2024 End: 04-27-2024 ambulatory TERRA C WINDNAGEL Not Available Start: 04-21-2024 End: 04-21-2024 ambulatory BIN JUSTIN Not Available Start: 03-03-2024 End: 03-03-2024 ambulatory TERRA C WINDNAGEL Not Available Start: 02-13-2024 End: 02-13-2024 ambulatory TERRA C WINDNAGEL Not Available Start: 02-04-2024 End: 02-04-2024 ambulatory TERRA C WINDNAGEL Not Available Start: 01-31-2024 End: 02-01-2024 Evaluation and management of inpatient [facility] Start: 01-29-2024 End: 01-29-2024 ambulatory [facility] Start: 12-31-2023 End: 12-31-2023 ambulatory [facility] Start: 12-25-2023 End: 12-25-2023 ambulatory [facility] Start: 12-24-2023 End: 12-24-2023 ambulatory [facility] Start: 11-11-2023 Orders Only Evangelina Estrada CLINICAL SERVICES MANAGER-[employer] Work Phone: [facility] Start: 11-07-2023 End: 11-08-2023 ambulatory [facility] Start: 11-07-2023 Encounter for genera l adult medical examination without abnormal findings [facility] Start: 11-07-2023 End: 11-07-2023 ambulatory [facility] Start: 11-07-2023 End: 11-07-2023 ambulatory [facility] Start: 11-07-2023 Encounter for genera l adult medical examination without abnormal findings [facility] Start: 11-07-2023 End: 11-07-2023 Patient encounter procedure Evangelina Estrada CLINICAL SERVICES MANAGER-[employer] Work Phone: [facility] Work Phone: Start: 11-07-2023 End: 11-07-2023 Periodic preventive med est patient 40-64yrs Evangelina Estrada CLINICAL SERVICES MANAGER-[employer] Work Phone: [facility] Comment on above: Visit for annual hea lt examination (Primary Dx); Acquired hypothyroidism; Anxiety; Special screening for malignant neoplasm of colon; Chronic frontal sinusitis Start: 10-23-2023 Refill Evangelina Estrada CLINICAL SERVICES MANAGER-[employer] Work Phone: [facility] Start: 08-21-2023 End: 08-21-2023 ambulatory [facility] Start: 05-20-2017 End: 05-21-2017 Ambulatory Yanira Schroeder Facility:[facility] Procedures Date Procedure Procedure Detail Performing Clinician Start: 05-20-2024 End: 05-20-2024 Needle emg ea extremty w/paraspinl area complete Bin Justin MD Work Phone: Start: 04-29-2024 Mammography Bin rg MD Work Phone: Start: 01-31-2024 Colonoscopy Bin rg MD Work Phone: Start: 12-31-2023 Follow-up visit Follow-up TIMO FLORES Start: 12-31-2023 Adult depression scr eening assessment Timo Flores DO Work Phone: Start: 11-07-2023 Adult depression scr eening assessment Evangelina Estrada CLINICAL SERVICES MANAGER-[employer] Work Phone: Start: 03-07-2023 Adult depression scr eening assessment Evangelina Estrada CLINICAL SERVICES MANAGER[employer] Work Phone: Start: 03-01-2023 Mammography Evangelina Estrada CLINICAL SERVICES MANAGER[employer] Work Phone: Start: 07-03-2022 Microscopic observat ion [Identifier] in Cervix by Cyto stain Evangelina Estrada CLINICAL SERVICES MANAGER-[employer] Work Phone: Start: 06-05-2022 Microscopic observat ion [Identifier] in Cervix by Cyto stain Gurinder Umang DO Work Phone: Plan of Treatment Date Care Activity Detail Author Start: 01-30-2034 Screening for malign ant neoplasm of colon [facility] Start: 06-05-2027 Screening for malign ant neoplasm of cervix [facility] Start: 07-03-2025 Screening for malign ant neoplasm of cervix Pap Smear [facility] Start: 06-05-2025 Screening for malign ant neoplasm of cervix Pap Smear [facility] Start: 04-29-2025 Screening for malign ant neoplasm of breast Mammogram [facility] Start: 01-30-2025 Adult BMI Screening Adult BMI Screen ing [facility] Start: 01-30-2025 Tobacco Screening Tobacco Screening [facility] Start: 12-30-2024 Depression Screening Depression Scre ening [facility] Start: 11-09-2024 End: 11-09-2024 Patient encounter procedure 11/09/2024 9:40 AM EDT Office Visit [facility] [address] [place] [phone] Terra Henson, [employer] [address] [place] [address] [facility] Start: 11-06-2024 Adult BMI Screening Adult BMI Screen ing [facility] Start: 11-06-2024 Depression Screening Depression Scre ening [facility] Start: 11-06-2024 Tobacco Screening Tobacco Screening [facility] Start: 08-13-2024 Tobacco Screening Tobacco Screening [facility] Start: 07-31-2024 Adult BMI Screening Adult BMI Screen ing [facility] Start: 07-27-2024 End: 07-27-2024 Patient encounter procedure 07/27/2024 8:30 AM EST Consult [facility] [address] [place] [phone] Gurinder Heck, DO [address] [place] [address] [facility] Start: 07-13-2024 End: 07-13-2024 Patient encounter procedure 07/13/2024 9:20 AM EST Consult [facility] [address] [place] [phone] Gurinder Heck, DO [address] [place] [address] Fibroid; Post-menopausal bleeding [facility] Comment on above: Fibroid; Post-menopausal bleeding Start: 05-28-2024 End: 05-28-2024 Patient encounter procedure 05/28/2024 3:20 PM EDT Office Visit [facility] [address] [place] [phone] Terra Henson, [employer] [address] [place] [address] [facility] Start: 05-28-2024 End: 05-28-2024 Patient encounter procedure 05/28/2024 8:40 AM EDT Office Visit [facility] [address] [facility] [address] [place] [address] Terra Henson, [employer] [address] [place] [address] [facility] Start: 05-19-2024 End: 05-19-2024 Professional / ancillary services management [facility] Start: 05-19-2024 End: 05-19-2024 Patient encounter procedure 05/19/2024 12:00 PM EDT Procedure Visit [facility] [address] [facility] [address] [place] [address] Bin Justin MD [address] [place] [address] Arrived [facility] Comment on above: Arrived Start: 05-03-2024 COVID-19 Vaccine () COVID-19 Vaccine () [facility] Start: 05-03-2024 Influenza vaccination Influenza Vacc ine (#1) [facility] Start: 03-07-2024 Depression Screening Depression Scre ening [facility] Start: 03-01-2024 Screening for malign ant neoplasm of breast Mammogram [facility] Start: 11-07-2023 End: 11-06-2024 XR Sinuses 3 Views [facility] Comment on above: Expected: 11/07/2023 , Expires: 11/06/2024 Start: 05-03-2023 COVID-19 Vaccine () COVID-19 Vaccine () [facility] Start: 1991 Screening for malign ant neoplasm of cervix Pap Smear [facility] Start: 1989 DTaP,Tdap and Td Vaccines (1 - Tdap) DTaP,Tdap and Td Vaccines (1 - Tdap) [facility] Start: 1970 Screening for malign ant neoplasm of colon [facility] End: 11-06-2024 Colonoscopy Colonoscopy GI Routine Special screening for malignant neoplasm of colon 1 Occurrences starting 11/07/2023 until 11/06/2024 [facility] Work [facility]: Comment on above: 1 Occurrences starti ng 11/07/2023 until 11/06/2024 Immunizations Immunization Date Immunization Notes Care Provider Fa cili 04-26-2021 COVID-19 Vaccine, vector-nr, rS-Ad26, PF, 0.5mL Evangelina Estrada CLINICAL SERVICES MANAGER[employer] Work Phone: [facility] 07-05-2014 influenza virus vaccine, unspecified formulation Evangelina Estrada CLINICAL SERVICES MANAGER-[employer] Work Phone: [facility] 08-22-2009 novel [id number], preservative-free, injectable Evangelina Estrada CLINICAL SERVICES MANAGER-[employer] Work Phone: [facility] Payers Date Payer Category [id number] 20[facility] [id number] 2022 Unknown [id number] 1.13.424. 2.7.3.936774.315 2022 Unknown [id number] 2017 Unknown [id number] 1970 Unknown [id number] 2.16.840.1.291802.3.579. 2.1285 1970 Unknown [id number] 2.16.840.1.003328.3.579. 2.1285 1970 Unknown [id number] 2.16.840.1.859207.3.579. 2.1285 1970 Unknown [id number] 2.16.840.1.037700.3.579. 2.1285 1970 Unknown [id number] 2.16.840.1.166191.3.579. 2.1285 1970 Unknown [id number] 2.16.840.1.076929.3.579. 2.1285 1970 Unknown [id number] 2.16.840.1.536100.3.579. 2.1285 1970 Unknown [id number] 2.16.840.1.040134.3.579. 2.1285 1970 Unknown [id number] 2.16.840.1.874616.3.579. 2.1286 1970 Unknown [id number] 2.16.840.1.833753.3.579. 2.1286 1970 Unknown [id number] 2.16.840.1.742135.3.579. 2.1259 1970 Unknown [id number] 2.16.840.1.511680.3.579. 2.125 1970 Unknown [id number] 2.16.840.1.925290.3.579. 2.125 1970 Unknown [id number] 2.16.840.1.929117.3.579. 2.1258 1970 Unknown [id number] 2.16.840.1.043116.3.579. 2.1258 1970 Unknown [id number] 2.16.840.1.136340.3.579. 2.1258 1970 Unknown [id number] 2.16.840.1.856280.3.579. 2.125 1970 Unknown [id number] 2.16.840.1.541072.3.579. 2.1258 1970 Unknown [id number] 2.16.840.1.607746.3.579. 2.1258 1970 Unknown [id number] 2.16.840.1.416703.3.579. 2.1258 1970 Unknown [id number] 2.16.840.1.938530.3.579. 2.125 1970 Unknown [id number] 2.16.840.1.771355.3.579. 2.1258 1970 Unknown [id number] 2.16.840.1.622201.3.579. 2.1258 1970 Unknown [id number] 2.16.840.1.043194.3.579. 2.125 1970 Unknown [id number] 2.16.840.1.846093.3.579. 2.1259 Social History Date Type Detail Facility Start: 08-10-2022 End: 02-04-2024 Tobacco smoking status NHIS Ex-smoker [facility] Start: 04-07-1990 End: 04-07-2010 History of tobacco use Current smoker [facility] Start: 04-07-1990 End: 04-07-2010 History of tobacco use Cigarette Smoker [facility] Start: 08-10-2022 End: 02-04-2024 Cigarettes smoked current (pack per day) - Reported 1 [facility] Start: 08-10-2022 End: 02-04-2024 Tobacco use and exposure Smokeless tobacco non-user [facility] Start: 08-13-2023 End: 01-31-2024 Alcohol intake Current drinker of alcohol (finding) [facility] Start: 08-13-2023 End: 02-04-2024 Tobacco use panel [facility] How hard is it for y ou to pay for the very basics like food, housing, medical care, and heating Not hard at all [facility] Start: 04-25-2021 Alcohol Comment occasionally [facility] Start: 1970 Sex Assigned At Not on file P [facility] Start: 04-07-2015 Sex Female (finding) [facility] Clinical Notes 08-22-2023 to 07-28-2024 Meg Nice, GLASS GLAZIER - 07/28/2024 2:00 PM Darrell Euceda, GLASS GLAZIER - 07/13/2024 9:20 AM Jessy Bruno CNM - 06/09/2024 11:17 AM Karishma Mercedes MA - 05/19/2024 12:00 PM EDT Note Date & Type Note Facility 07-28-2024 History of Present illness Narrative Reason for Appointment: Patient ID: Blanca Jenkins is a 54 y.o. female who presents for Pre-op Visit Patient presents today for a Pre Op appointment appointment. Patient is scheduled to undergo D&C Hysteroscopy, possible Myosure on 08/13/[address] Heck at [facility]. Current Medications: has a current medication list which includes the following prescription(s): fluoxetine, levothyroxine, norethindrone-ethinyl estradiol, and rosuvastatin. Medical History: Active Ambulatory Problems Diagnosis Date Noted Migraine ([facility]) 02/01/2024 Cerebral embolism 02/01/2024 Aura 12/18/2017 Migraine with aura ([facility]) 12/18/2017 Spina bifida with hydrocephalus ([facility]) 08/19/2012 Osteoarthritis of spine with radiculopathy, lumbar region 05/28/2024 Sensory disturbance 05/28/2024 Osteoarthritis of spine with radiculopathy, cervical region 05/28/2024 Cervicogenic headache 05/28/2024 Fibroid 07/13/2024 Post-menopausal bleeding 07/13/2024 Resolved Ambulatory Problems Diagnosis Date Noted No Resolved Ambulatory Problems Past Medical History: Diagnosis Date Anxiety Classical migraine ([facility]) 07/10/2012 COPD (chronic obstructive pulmonary disease) ([facility]) Thyroid disorder ([facility]) Family History Problem Relation Name Age of Onset Breast cancer Mother Alcohol abuse Father Hypertension Other Social History Tobacco Use Smoking status: Former Types: Cigarettes Smokeless tobacco: Never Substance Use Topics Alcohol use: Not on file Drug use: Not on file Past Surgical History: Procedure Laterality Date TONSILLECTOMY 06/11/2017 No Known Allergies Review of Systems: Review of Systems Constitutional: Negative. HENT: Negative. Eyes: Negative. Respiratory: Negative. Cardiovascular: Negative. Gastrointestinal: Negative. Genitourinary: Positive for menstrual problem and vaginal bleeding. Musculoskeletal: Negative. Skin: Negative. Neurological: Negative. All other systems reviewed and are negative. Hematological: Negative. Endocrine: Negative. Allergic/Immunologic: Negative. Objective Physical Exam Constitutional: Appearance: Normal appearance. She is well-developed. Cardiovascular: Rate and Rhythm: Normal rate and regular rhythm. Pulmonary: Effort: Pulmonary effort is normal. Breath sounds: Normal breath sounds. Abdominal: General: Bowel sounds are normal. There is no distension. Palpations: Abdomen is soft. Tenderness: There is no abdominal tenderness. There is no guarding or rebound. Musculoskeletal: General: No swelling. Normal range of motion. Right lower leg: No edema. Left lower leg: No edema. Neurological: Mental Status: She is alert and oriented to person, place, and time. Skin: General: Skin is warm and dry. Psychiatric: Mood and Affect: Mood normal. Behavior: Behavior normal. Vitals and nursing note reviewed. Exam conducted with a child therapist present. Vitals: Estimated body mass index is 22.05 kg/m as calculated from the following: Height as of 05/28/24: 5' 7 . Weight as of this encounter: 140 lb 12.8 oz. BP: 120/82 No LMP recorded. Patient is postmenopausal. Assessment/Plan ICD-10-CM 1. Pre-operative exam Z01.818 2. Post-menopausal bleeding N95.0 Pre Op: Patient is doing well but has complaints of post-menopausal bleeding. I have discussed conservative management vs. surgical management with the patient in detail and patient desires surgical management at this time. Patient will undergo D&C Hysteroscopy, possible Myosure on 08/13/2024. Surgical consents were signed, mmc was reviewed, and patient is to proceed to [facility]. Follow Up: Patient is to follow up between 1-2 weeks post operative to assess proper healing and recovery from procedure. Documented by: Meg Nice LPN on behalf of Gurinder Heck DO documented in this encounter [facility] 07-13-2024 History of Present illness Narrative Reason for Appointment: Patient ID: Blanca Jenkins is a 54 y.o. female who presents for postmenopausal bleeding and Fibroids Patient presents today for Consult appointment. MEDICATIONS Current Outpatient Medications Medication Instructions FLUoxetine (PROZAC) 40 mg, Daily levothyroxine (SYNTHROID, LEVOXYL) 75 mcg, Daily before breakfast norethindrone-ethinyl estradiol (Femhrt) 0.5-2.5 MG-MCG tablet 1 tablet, Oral, Daily rosuvastatin (CRESTOR) 10 mg, Nightly ALLERGIES No Known Allergies PROBLEMS Active Ambulatory Problems Diagnosis Date Noted Migraine ([facility]) 02/01/2024 Cerebral embolism 02/01/2024 Aura 12/18/2017 Migraine with aura ([facility]) 12/18/2017 Spina bifida with hydrocephalus ([facility]) 08/19/2012 Osteoarthritis of spine with radiculopathy, lumbar region 05/28/2024 Sensory disturbance 05/28/2024 Osteoarthritis of spine with radiculopathy, cervical region 05/28/2024 Cervicogenic headache 05/28/2024 Resolved Ambulatory Problems Diagnosis Date Noted No Resolved Ambulatory Problems Past Medical History: Diagnosis Date Anxiety Classical migraine ([facility]) 07/10/2012 COPD (chronic obstructive pulmonary disease) ([facility]) Thyroid disorder ([facility]) HISTORY PAST MEDICAL HISTORY SOCIAL HISTORY Past Medical History: Diagnosis Date Anxiety Aura 12/18/2017 Cerebral embolism 07/10/2012 Classical migraine ([facility]) 07/10/2012 COPD (chronic obstructive pulmonary disease) ([facility]) Migraine ([facility]) 07/10/2012 Migraine with aura ([facility]) 12/18/2017 Spina bifida with hydrocephalus ([facility]) 08/19/2012 Thyroid disorder ([facility]) Social History Tobacco Use Smoking status: Former Types: Cigarettes Smokeless tobacco: Never Substance Use Topics Alcohol use: Not on file Drug use: Not on file FAMILY HISTORY Family History Problem Relation Name Age of Onset Breast cancer Mother Alcohol abuse Father Hypertension Other SURGICAL HISTORY Past Surgical History: Procedure Laterality Date TONSILLECTOMY 06/11/2017 REVIEW OF SYSTEMS Review of Systems: Review of Systems Genitourinary: Positive for vaginal bleeding. All other systems reviewed and are negative. OBJECTIVE Objective: Physical Exam Constitutional: Appearance: Normal appearance. She is well-developed. Cardiovascular: Rate and Rhythm: Normal rate and regular rhythm. Pulmonary: Effort: Pulmonary effort is normal. Breath sounds: Normal breath sounds. Abdominal: General: Bowel sounds are normal. There is no distension. Palpations: Abdomen is soft. Tenderness: There is no abdominal tenderness. There is no guarding or rebound. Musculoskeletal: General: No swelling. Normal range of motion. Right lower leg: No edema. Left lower leg: No edema. Neurological: Mental Status: She is alert and oriented to person, place, and time. Skin: General: Skin is warm and dry. Psychiatric: Mood and Affect: Mood normal. Behavior: Behavior normal. Vitals and nursing note reviewed. Exam conducted with a child therapist present. Vitals: Estimated body mass index is 22.42 kg/m as calculated from the following: Height as of 05/28/24: 5' 7 . Weight as of this encounter: 143 lb 1.9 oz. BP: 130/78 No LMP recorded. Patient is postmenopausal. ASSESSMENT & PLAN ICD-10-CM 1. Fibroid D21.9 Ambulatory referral to Obstetrics / Gynecology 2. Post-menopausal bleeding N95.0 Ambulatory referral to Obstetrics / Gynecology Patient presents today for referral from Sneha Bruno for PMB and Fibroids. Discussed options with patient in regards to management for post menopausal bleeding and fibroids. Patient desires to have fractional D&C Hysteroscopy. [employer] to setup appointments with patient for pre-op and surgery date. Patient to return to clinic as discussed. Documented by Anitha Euceda LPN on behalf of: Gurinder Heck DO documented in this encounter [facility] 06-09-2024 History of Present illness Narrative Referral sent to Dr Heck for consult on PMB and fibroid. I did not perform EMB. documented in this encounter [facility] 05-19-2024 History of Present illness Narrative Images from the original note were not included. Reason for Appointment: EMG Patient: Blanca Jenkins : 1970 EMG Computer: [employer] Referring Physician: Terra Henson CNP EMG: BENNIE director digital advertising: Vikki Mercedes CMA Office Location: [place] Reason for EMG: c/o tingling in the fingers and hands. Equal bilaterally. Doesn't radiate. Intermittent symptoms in the face. No hx of DM, not taking blood thinners. Comments: Procedure explained to the patient who expressed understanding documented in this encounter [facility] 11-07-2023 History of Present illness Narrative Subjective Patient ID: Blanca Jenkins is a 53 y.o. female. Here for annual wellness exam She does feel some heaviness in her sinuses, somewhat off balance sensation since Saturday It has been really damp all week with the weather change She tried allergy medication and really hasn't felt better No fever or chills Feels a little stuffy Her asthma has been very stable We discussed her colon cancer screening which is due, she last had cologaurd but now would like to get a colonoscopy The following portions of the patient's history were reviewed and updated as appropriate: allergies, current medications, past family history, past medical history, past social history, past surgical history, problem list, and medication reconciliation was completed including current medication and post discharge medication. Review of Systems Constitutional: Negative. HENT: Positive for congestion, ear pain (ear pressure) and sinus pressure. Eyes: Negative. Respiratory: Negative. Cardiovascular: Negative. Gastrointestinal: Negative. Genitourinary: Negative. Musculoskeletal: Positive for arthralgias. Skin: Negative. Allergic/Immunologic: Negative. Neurological: Positive for dizziness. Hematological: Negative. Psychiatric/Behavioral: Positive for dysphoric mood (stable). Objective Physical Exam Vitals and nursing note reviewed. HENT: Head: Normocephalic. Nose: Congestion and rhinorrhea present. Comments: Nasal turbinates are swollen Mouth/Throat: Mouth: Mucous membranes are moist. Eyes: Conjunctiva/sclera: Conjunctivae normal. Neck: Vascular: No carotid bruit. Cardiovascular: Rate and Rhythm: Normal rate and regular rhythm. Heart sounds: Normal heart sounds. No murmur heard. Pulmonary: Effort: Pulmonary effort is normal. Breath sounds: Normal breath sounds. Abdominal: General: Abdomen is flat. Palpations: Abdomen is soft. Musculoskeletal: Cervical back: Neck supple. Right lower leg: No edema. Left lower leg: No edema. Lymphadenopathy: Cervical: No cervical adenopathy. Skin: General: Skin is warm and dry. Capillary Refill: Capillary refill takes less than 2 seconds. Neurological: Mental Status: She is alert and oriented to person, place, and time. Psychiatric: Behavior: Behavior normal. Thought Content: Thought content normal. Judgment: Judgment normal. Assessment/Plan Blanca was seen today for annual exam. Diagnoses and all orders for this visit: Visit for annual health examination - Comprehensive metabolic panel; Future - Lipid panel; Future Acquired hypothyroidism - Thyroid profile includes TSH FT4; Future Anxiety Special screening for malignant neoplasm of colon - Colonoscopy; Future Chronic frontal sinusitis - X-ray sinuses minimum 3 views; Future Other orders - montelukast (SINGULAIR) 10 mg tablet; Take 1 tablet (10 mg total) by mouth in the morning. - fluticasone propionate (FLONASE) 50 mcg/actuation nasal spray; Administer 2 sprays into each nostril in the morning. Her blood pressure is excellent Weight is good She is UTD on mammogram and lung cancer screening - reviewed Her labs were drawn today for blood sugar, kidney and liver function as well as lipids Her thyroid is rechecked Her colonoscopy is ordered for screening Her asthma is stable however she is having problems with her sinuses which may be allergy related, will get an x-ray to ensure there is no chronic infection and will restart her singulair and flonase which has helped in the past in the spring/summer months Continue the clonidine for menopausal hot flashes NAINA Ortega 11/07/23 1041 [facility] LOW DOSE LUNG SCR EENING PROCEDURE: CT CHEST NON CONTRAST - LUNG CANCER SCREENING CLINICAL INDICATION: 20 pack year history smoking. COMPARISON: 08/10/2022 TECHNIQUE: Low dose CT was acquired from lung apices to bases was obtained and reconstructed without intravenous contrast. MIP and coronal & sagittal MPR images were generated and reviewed. FINDINGS: Lower Neck & Thyroid: Unremarkable. Lungs: No acute abnormality and no suspicious lung nodule. Central Airway: Unremarkable. Pleura: No pleural effusion, thickening or pneumothorax. Thoracic Aorta & Great Vessels: Normal in diameter. No atherosclerotic calcification. Pulmonary Arteries: Nonenlarged. Heart & Pericardium: No significant coronary arterial calcification. Unremarkable cardiac morphology and pericardium. Lymph Nodes: No enlarged thoracic lymph nodes. Mediastinum & Esophagus: Unremarkable. Thoracic Spine & Chest Wall: No suspicious osseous lesion. Other Lines/Tubes/Devices/Hardware: None. Visualized Upper Abdomen: Bilateral adrenal calcifications as before.. IMPRESSION: 1. LungRADS Category 1 - Negative screen. Continue annual screening in 12 months. LungRADS reference table: See www.acr.org/Quality-Safety/Resour cole/LungRads for more information on the lung cancer screening reporting structure. Category 0: Incomplete screen Category 1: Negative screen - no nodules and/or definitely benign nodules - continue annual screening in 12 months Category 2: Benign screen - nodules with benign appearance or behavior - continue annual screening in 12 months Category 3: Positive screen, probably benign - recommend low dose nodule CT in 6 months Category 4A: Positive screen, suspicious - recommend low dose nodule CT in 3 months; may consider PET/CT if solid nodule component of 8 mm or more Category 4B: Positive screen,?suspicious?- recommend multidisciplinary consultation and additional imaging(either chest CT with contrast and/or PET CT?if solid nodule component of 8 mm or more)and/or tissue sampling S modifier: Other clinically significant or potentially significant findings C modifier: History of prior lung cancer All CT scans at this facility use dose modulation, iterative reconstruction, and/or weight based dosing when appropriate to reduce radiation dose to as low as reasonably achievable. Finalized by Jaycob Barker MD on 08/22/2023 11:24 AM 1 LDCT 1 Yr [facility] Evaluation note Diagnosis Visit for annual health examination- Primary Acquired hypothyroidism Unspecified hypothyroidism Anxiety Anxiety state, unspecified Special screening for malignant neoplasm of colon Special screening for malignant neoplasms, colon Chronic frontal sinusitis documented in this encounter [facility] System[facility]* Diagnosis Fibroid- Primary Leiomyoma of uterus, unspecified Post-menopausal bleeding Postmenopausal bleeding documented in this encounter [facility] HealthcareEvaluation note* Diagnosis Anxiety Anxiety state, unspecified documented in this encounter [facility] note* Diagnosis Acquired hypothyroidism Unspecified hypothyroidism documented in this encounter [facility] note* Diagnosis Fibroid Leiomyoma of uterus, unspecified Post-menopausal bleeding Postmenopausal bleeding documented in this encounter [facility]* Diagnosis Pre-operative exam Unspecified pre-operative examination Post-menopausal bleeding Postmenopausal bleeding documented in this encounter [facility] HealthcareEvaluation note* Diagnosis Cervical radiculopathy- Primary Brachial neuritis or radiculitis nos documented in this encounter [facility] HealthcareInstructionsNot on filedocumented in this encounterProElyria [facility] SystemInstructionsNot on filedocumented in this encounterProElyria [facility] Hospital SystemInstructionsNot on filedocumented in this encounterProMedica Health SystemInstructionsNot on filedocumented in this encounterLouis [facility] Summary Purpose Family History No Family History Records FoundNo Family History Records FoundNo Family History Records FoundNo Family History Records FoundNo Family History Records FoundNo Family History Records Found Advance Directives No Advanced Directives Records FoundNo Advanced Directives Records FoundNo Advanced Directives Records FoundNo Advanced Directives Records FoundNo Advanced Directives Records FoundNo Advanced Directives Records Found Reason for Referral Specialty Diagnoses / Procedures Referred By Contac t Referred To Contact Diagnoses Special screening for malignant neoplasm of colon Procedures Colonoscopy Natalie Jyoti, CLINICAL SERVICES MA[employer]GER[employer] [address] [place] [address] Referral ID Status Reason Start Date Expiration Date V isits Requested Visits Authorized [id number] Pending Review 11/07/2023 11/06/2024 1 1 Specialty Diagnoses / Procedures Referred By Contac t Referred To Contact Obstetrics and Gynecology Diagnoses Fibroid Post-menopausal bleeding Procedures NE OFFICE/OUTPATIENT [facility] 60 MINUTES Lennox Bruno, CNM [address] [place] [address] Gurinder Heck, [address] [place] [address] Referral ID Status Reason Start Date Expiration Date Visits Requested Visits Authorized [id number] Pending Review Specialty Services Required 06/09/2024 12/06/2024 1 1 Additional Source Comments INFORMATION SOURCE (unrecogn ized section and content) DATE CREATED AUTHOR 02/26/2018 Guillen Justin [facility] DATE CREATED AUTHOR AUTHOR'S ORGANIZ ATION 11/04/2021 [facility] DATE CREATED AUTHOR AUTHOR'S ORGANIZ ATION 12/26/2023 [facility] DATE CREATED AUTHOR AUTHOR'S ORGANIZ ATION 01/01/2024 [facility] DATE CREATED AUTHOR AUTHOR'S ORGANIZ ATION 02/01/2024 [facility] DATE CREATED AUTHOR AUTHOR'S ORGANIZ ATION 07/31/2024 [facility] Reason for Visit (unrecogniz ed section and content) Reason Onset Date Comments Med Refill 10/23/2023 Reason Comments Annual Exam Reason Comments Med Refill Reason Comments postmenopausal bleeding Fibroids Specialty Diagnoses / Procedures Referred By Contbogdan t Referred To Contact Obstetrics and Gynecology Diagnoses Fibroid Post-menopausal bleeding Procedures NE OFFICE/OUTPATIENT [facility] 60 MINUTES Lennox Bruno, CNM [address] [place] [address] Phone: tel: fax: Gurinder Heck DO [address] [place] [address] [place] [address] Phone: tel: fax: Referral ID Status Reason Start Date Expiration Date V isits Requested Visits Authorized [id number] Closed Specialty Services Required 06/09/2024 12/06/2024 1 1 Reason Comments Pre-op Visit Care Teams (unrecognized sec tion and content) Prior Authorization Nurse Relationship Specialty Start Date End Date Timo Flores DO [address] [place] [address] PCP - General Internal Medicine 09/11/17 Prior Authorization Nurse Relationship Specialty Start Date End Date Timo Flores DO [address] [place] [address] PCP - General Internal Medicine 09/11/17 Prior Authorization Nurse Relationship Specialty Start Date End Date Timo Flores DO [address] [place] [address] PCP - General Internal Medicine 09/11/17 Prior Authorization Nurse Relationship Specialty Start Date End Date Timo Flores MD [address] [place] [address] PCP - General Internal Medicine 01/21/24 Prior Authorization Nurse Relationship Specialty Start Date End Date Timo Flores DO [address] [place] [address] PCP - General Internal Medicine 09/11/17 Prior Authorization Nurse Relationship Specialty Start Date End Date Timo Flores MD [address] [place] [address] PCP - General Internal Medicine 01/21/24 Prior Authorization Nurse Relationship Specialty Start Date End Date Timo Flores MD [address] [place] [address] PCP - General Internal Medicine 01/21/24 Prior Authorization Nurse Relationship Specialty Start Date End Date Timo Flores MD [address] [place] [address] PCP - General Internal Medicine 01/21/24 Prior Authorization Nurse Relationship Specialty Start Date End Date Timo Flores MD [address] [place] [address] PCP - General Internal Medicine 01/21/24 Prior Authorization Nurse Relationship Specialty Start Date End Date Timo Flores MD [address] [place] [address] PCP - General Internal Medicine 01/21/24 Prior Authorization Nurse Relationship Specialty Start Date End Date Timo Flores MD [address] [place] [address] PCP - General Internal Medicine 01/21/24 FOR RECORDS PERTAINING TO PATIENTS WHO ARE OR HAVE BEEN ENROLLED IN A CHEMICAL DEPENDENCY/SUBSTANCEABUSE PROGRAM, SOME INFORMATION MAY BE OMITTED. This clinical summary was aggregated from multiple sources. Caution should be exercised in using it in the provision of clinical care. This summary normalizes information from multiple sources, and as a consequence, information in this document may materially change the coding, format and clinical context of patient data. In addition, data may be omitted in some cases. CLINICAL DECISIONS SHOULD BE BASED ON THE PRIMARY CLINICAL RECORDS. [facility] [employer] [facility]. provides no warranty or guarantee of the accuracy or completeness of information in this document.
[2024-08-13 06:20] LABS: Basophils Percent Auto 0.5 % (0.2-2.0); Eosinophils Absolute Auto 0.1 10^3/uL (0.0-0.7); Eosinophils Percent Auto 1.6 % (0.9-7.0); Hematocrit 42.9 % (36.0-48.0); Hemoglobin 14.2 g/dL (12.0-16.0); Immature Granulocytes Abs Auto 0.01 10^3/uL (0.00-0.03); Immature Granulocytes Pct Auto 0.2 % (0.0-0.5); Lymphocytes Absolute Auto 1.2 10^3/uL (1.2-3.8); Lymphocytes Percent Auto 27.7 % (20.5-60.0); Mean Corpuscular HGB Conc 33.1 g/dL (29.9-35.2); Mean Corpuscular Hemoglobin 32.3 pg (26.7-34.0); Mean Corpuscular Volume 97.5 fL (81.0-99.0); Mean Platelet Volume 9.1 fL (9.5-13.5); Monocytes Absolute Auto 0.4 10^3/uL (0.3-0.8); Monocytes Percent Auto 8.2 % (1.7-12.0); Neutrophils Absolute Auto 2.7 10^3/uL (1.4-6.5); Neutrophils Percent Auto 61.8 % (43.0-75.0); Platelet Count 180 10^3/uL (150-450); Red Cell Distribution Width 12.3 % (11.0-15.0); White Blood Count 4.4 10^3/uL (4.0-11.0)
[2024-08-13] MEDS: LACTATED RINGER'S SOLUTION 1,000 ML 50 ML IV (06:42)
[2024-08-13] MEDS: LACTATED RINGER'S SOLUTION 1,000 ML 150 ML IV (08:48)
--- NOTE | 2024-08-13 08:59 | PM.ONB ---
Brief Operative Note Date of procedure: 08/13/24 Pre-op diagnosis general: pmb Post-op diagnosis: same as pre-op Procedure: NAME OF PROCEDURE: [ D&c hysteroscopy with myosure] PROCEDURE: The patient was taken back to the Operating Room where she was prepped and draped in normal sterile fashion after being placed under general anesthesia without difficulty. She was also placed in the dorsal lithotomy position. A weighted speculum was placed in the patient?s vagina. The anterior lip of the cervix was identified and grasped with a single tooth tenaculum. The patient?s uterus was then sounded roughly to [? 8] cm. The patient was then gently dilated using Hegar dilators. The hysteroscope was passed through the patient?s cervix into the uterus. Both ostia were identified. fluffy appearing endometrium. No gross evidence of malignancy, no gross evidence of polyps or fibroids. The myosure apparatus was placed through the scope, The myosure was engaged and endometrial curretting were removed along with endometrial polyp, The hysteroscope was then removed from the uterus. The endometrial curettings were sent out to pathology. The single tooth tenaculum was then removed from the patient's anterior lip of the cervix where excellent hemostasis was noted. All instruments were removed from the patient?s vagina. The patient tolerated the procedure well. Sponge, lap and needle counts were correct times two. The patient was taken to the Recovery Room in stable condition.Room in stable condition. Anesthesia: GETA Surgeon: Jossue Heck Estimated blood loss (mL): 5 Pathology: other (endometrial currettings) Condition: stable Disposition: PACU Urinary Catheter Management Urinary Catheter Management Straight: Cath placed during this visit: no
--- NOTE | 2024-08-13 09:44 | PC.NURSE ---
Peripad noted to have small amount bloody drainage
--- NOTE | 2024-08-13 10:32 | PC.NURSE ---
PATIENT URINATED PER PHYSICIAN'S ORDER
== END 2024-08-13 10:30 | disposition home or self-care (01) ==
LOC: SURGOUT 06:11
PROVIDERS: PCP Internal Medicine; Visit Provider Obstetrics & Gynecology
PROC: (CPT 952; principal; 2024-08-13 07:45)
DX: N95.0 Postmenopausal bleeding (principal); Z87.891 Personal history of nicotine dependence; J44.9 Chronic obstructive pulmonary disease, unspecified; E03.9 Hypothyroidism, unspecified
CPT/HCPCS: 58558; 36415; 85025; 88305; J1100; J1885; J2250; J2405; J2704; J3010